=== PATIENT | female | born 1990 | race African-American/Black ===

== ENCOUNTER 2021-01-19 09:44 | Emergency (ER) | payer OTHER, SELFPAY ==
--- NOTE | 2021-01-19 09:47 | ED.URI ---
HPI - URI/Sore Throat General Chief Complaint: Upper Respiratory Infection Stated Complaint: Dizziness, sore Throat, Ear ache, headache Time Seen by Provider: 01/19/21 09:47 Source: patient and RN notes reviewed History of Present Illness HPI Narrative: Patient is a 30-year-old female who presents the urgent care a complaints of bilateral ear pain, dizziness, sore throat and headache. Patient states that she had a negative Covid test yesterday and denies of any known Covid or strep exposure. Patient has been taking ibuprofen for her symptoms. No other acute complaints. No acute distress noted. Patient aware of plan of care. Some parts of this dictation were generated by voice recognition software and may contain typographical and/or grammatical inaccuracies. Related Data Allergies Allergy/AdvReac Type Severity Reaction Status Date / Time Sulfa (Sulfonamide Allergy Severe Swelling Verified 01/19/21 10:11 Antibiotics) of Lip/Tongue/Throat Review of Systems Review of Systems: CONSTITUTIONAL: Denies fever, chills, or sweats. EYES: Denies visual changes, redness, or discharge. ENT: Reports bilateral otalgia and sore throat CARDIOVASCULAR: Denies chest pain, palpitations, or edema. RESPIRATORY: Denies cough or dyspnea. GASTROINTESTINAL: Denies abdominal pain, nausea, vomiting, or diarrhea. GENITOURINARY: Denies dysuria or hematuria. SKIN: Denies rash or itching. MUSCULOSKELETAL: Denies back pain, joint pain, or myalgia. NEUROLOGIC: Reports a headache and dizziness All other systems reviewed are negative, except as documented in HPI. PMFSH Comments At the time of my signature, I reviewed and agree with the nursing past medical, surgical, social, and family history. There is no relevant family history pertinent to the patient complaint. Exam Narrative: GENERAL: This is a well-nourished, well-developed patient, in no apparent distress. HEAD: normocephalic, atraumatic. EYES: PERRL. Sclera clear/white. Vision is grossly intact. EARS: External ears normal, auditory canals clear and without drainage, left cerumen impaction. Right TM normal without perforation. Hearing grossly intact. NOSE: External nose normal with no obvious nasal discharge, nares without redness, no rhinorrhea. THROAT: Mucous membranes moist, posterior pharynx clear. Moderate postnasal drainage NECK: Neck supple CARDIOVASCULAR: Regular rate and rhythm without murmurs, gallops, or rubs. RESPIRATORY: Clear to auscultation. Breath sounds equal bilaterally. No wheezes, rales, or rhonchi. SKIN: warm, intact with no suspicious lesions or rash, good texture and turgor. NEURO: awake, alert, and oriented to person, place and time. There were no obvious focal neurologic abnormalities. EXTREMITIES: No clubbing, cyanosis, or edema. Course Vital Signs Vital signs: Vital Signs Temperature 97.8 F 01/19/21 09:53 Pulse Rate 78 01/19/21 09:53 Respiratory Rate 16 01/19/21 09:53 Blood Pressure 116/74 01/19/21 09:53 Pulse Oximetry 100 01/19/21 09:53 Temperature 97.8 F 01/19/21 09:53 Pulse Rate 78 01/19/21 09:53 Respiratory Rate 16 01/19/21 09:53 Blood Pressure 116/74 01/19/21 09:53 Pulse Oximetry 100 01/19/21 09:53 Reviewed MDM - URI/Sore Throat MDM Narrative Medical decision making narrative: Reviewed lab results with the patient. She is aware that strep swab was positive. Advised patient complete oral antibiotic regimen as prescribed.Complete steroid regimen as prescribed. Make sure you eat and drink with the medication. We will send the PCR Covid swab to the lab and it takes approximately 24 to 48 hours however they are not ran on Sundays. Therefore you should hear back by Wednesday evening or Wednesday afternoon. You may call the facility and check on the culture if you have not heard. Use [id number] medications such as Tylenol/ibuprofen as needed. Use Claritin/Zyrtec/Benadryl in conjunction with Flonase nasal spray for sym
[2021-01-19 09:53] VITALS: BP 116/74; PULSE 78; RESP 16; TEMP 36.6; O2SAT 100
[2021-01-20 03:42] LABS: SARS-CoV-2 RNA PCR Negative
== END 2021-01-19 10:15 | disposition home or self-care (01) ==
PROVIDERS: Emergency Provider Nurse Practitioner Family
DX: J02.0 Streptococcal pharyngitis (principal); Z20.822 Contact with and (suspected) exposure to COVID-19
CPT/HCPCS: 87880; 99213; C9803; G0463; U0003; U0005